=== PATIENT | male | born 1960 | race Caucasian/White ===

== ENCOUNTER 2018-08-23 11:30 | Emergency (ER) | payer BC ==
[2018-08-23 12:03] VITALS: BP 137/74; PULSE 64; TEMP 98.1; BMI 19.8
--- NOTE | 2018-08-23 12:47 | PDOC ---
History of Present Illness - General Chief Complaint: Injury Stated Complaint: hit head last night Time Seen by Provider: 08/23/18 12:44 - History of Present Illness Initial Comments: 08/23/18 13:25 Chief complaint: Contusion of the forehead History of present illness: Patient sent to the ER for evaluation from the [facility]. Scheduled for colonoscopy today, but it was noted that he had a bruise on his forehead from a fall last night, and the colonoscopy was deferred pending further evaluation. The patient states that he was walking to the bathroom last night, tripped over a shelf, fell and struck his forehead. He did not feel lightheaded or dizzy. There was no loss of consciousness. He was immediately and continued his normal activities without undue pain, lightheadedness, dizziness, headache, nausea, or vomiting. He has no complaints at present. He denies headache, visual or focal neurologic symptoms, unsteadiness of gait Review of systems: As above. Otherwise negative Past medical history: Healthy male, no significant medical or surgical problems past her present, no medications including blood thinners or aspirin. Social/family history: Does [employer] work, fully active, without disability. Colonoscopy was done routinely as a screening tool. He has no family history of colon cancer Physical exam: Alert and oriented well-developed well-nourished no acute distress cheerful and cooperative. Denies headache, nausea, drowsiness, or difficulty concentrating Afebrile, vital signs normal HEENT: 2 cm contusion, hematoma, and upper eyelid ecchymosis, left forehead. 1 mm abrasion. Minimal tenderness to palpation. No deformity of the orbit or other facial bones. No other welling or tenderness of the face. ENT clear. PERRLA, conjunctivae clear, EOMs full without diplopia, visual hanks intact confrontation, anterior chambers and corneas clear, fundi benign with sharp disc margins and good central venous pulsations. Neck supple without bruit mass or nodes. No point tenderness or deformity. Full range of motion without pain Chest clear to P&A, full breath sounds bilaterally, no rib cage or chest wall tenderness or deformity CV regular without murmur rub or gallop pulses full and symmetric no JVD or edema. No bruits Abdomen soft nontender without mass or organomegaly. No CVAT. Pelvis and spine without tenderness or deformity Extremities without visible or palpable sign of trauma Neurological C2 to 12 intact. Strength full and symmetric. No focal sensory or motor deficits. Gait stable and unimpaired Impression: Contusion of the forehead, minor head injury, no sign of concussion or intracranial hemorrhage Plan: Symptomatic treatment, observation at home, and follow-up if further symptoms develop. Fully ambulatory and in no pain or other distress upon discharge with his sister to follow-up as directed. Past History - Past Medical History Allergies/Adverse Reactions: Allergies Allergy/AdvReac Type Severity Reaction Status Date / Time No Known Allergies Allergy Verified 08/23/18 11:58 Home Medications: Ambulatory Orders Carbamazepine Xr [Tegretol Xr -] 400 mg PO BID 08/23/18 COPD: No Seizures: Yes (last seizure 1998) - Suicide/Smoking/Psychosocial Hx Smoking History: Never smoked Have you smoked in the past 12 months: No Information on smoking cessation initiated: No Hx Alcohol Use: No Drug/Substance Use Hx: No Substance Use Type: None *Physical Exam - Vital Signs Last Vital Signs Temp Pulse Resp BP Pulse Ox 98.1 F 64 20 137/74 99 08/23/18 11:32 08/23/18 11:32 08/23/18 11:32 08/23/18 11:32 08/23/18 11:32 *DC/Admit/Observation/Transfer Diagnosis at time of Disposition: Contusion of forehead Qualifiers: Encounter type: initial encounter Qualified Code(s): S00.83XA - Contusion of other part of head, initial encounter - Discharge Dispostion Disposition: HOME Condition at time of disposition: Stable Decision to Admit order: No - Referrals Referrals: Jovanni Garcia MD [Staff Physician] - - Patient Instructions Printed Discharge Instructions: DI for Closed Head Injury Additional Instructions: Return to emergency room if further symptoms develop, especially headache, nausea, vomiting, visual symptoms, lightheadedness, dizziness, unsteadiness of gait, excessive drowsiness or decreased alertness. Use ice to the bruises. Make sure you are awakened at your normal time tomorrow morning and they you're feeling well. - Post Discharge Activity Forms/Work/School Notes: Back to Work
== END 2018-08-23 12:56 | disposition home or self-care (01) ==
LOC: MERGE 11:30 → FER 11:30
DX: S00.83XA Contusion of other part of head, initial encounter (principal); W18.39XA Other fall on same level, initial encounter; Y93.89 Activity, other specified; Y92.009 Unspecified place in unspecified non-institutional (private) residence as the place of occurrence of the external cause
CPT/HCPCS: 99282-25

== ENCOUNTER 2019-09-22 19:48 | Emergency (ER) | payer BC ==
[2019-09-22 20:06] VITALS: BP 115/63; PULSE 73; TEMP 98.2; BMI 21.1
--- NOTE | 2019-09-22 21:20 | PDOC ---
History of Present Illness - General Chief Complaint: Edema Stated Complaint: SWELLING Time Seen by Provider: 09/22/19 20:11 History Source: Patient Exam Limitations: No Limitations Past History - Past Medical History Allergies/Adverse Reactions: Allergies Allergy/AdvReac Type Severity Reaction Status Date / Time No Known Allergies Allergy Verified 02/09/19 16:47 Home Medications: Ambulatory Orders Carbamazepine Xr [Tegretol Xr -] 400 mg PO BID 08/23/18 Anemia: No Asthma: No Cancer: No Cardiac Disorders: No CVA: No COPD: No CHF: No Dementia: No Diabetes: No GI Disorders: No Disorders: No HTN: No Hypercholesterolemia: No Liver Disease: No Seizures: Yes (last seizure 1998) Thyroid Disease: No - Surgical History Abdominal Surgery: No Appendectomy: No Cardiac Surgery: No Cholecystectomy: No Lung Surgery: No Neurologic Surgery: No Orthopedic Surgery: No - Immunization History Immunization Up to Date: No - Psycho Social/Smoking Cessation Hx Smoking History: Former smoker Have you smoked in the past 12 months: No Information on smoking cessation initiated: No Hx Alcohol Use: No Drug/Substance Use Hx: No Substance Use Type: None Hx Substance Use Treatment: No *Physical Exam - Vital Signs Last Vital Signs Temp Pulse Resp BP Pulse Ox 98.2 F 73 19 115/63 98 09/22/19 20:03 09/22/19 20:03 09/22/19 20:03 09/22/19 20:03 09/22/19 20:03 - Physical Exam General Appearance: No: Apparent Distress Musculoskeletal: positive: Other (+R thumb large swelling, no TTP along pulp of finger, TTP along dorsal aspect of R thumb, +erythema and slight warmth, distal aspect of thumb is soft to touch, no drainage, no streaking, FROM of R thumb) Neurologic: positive: Alert, Normal Mood/Affect ED Treatment Course - RADIOLOGY Radiology Studies Ordered: Category Date Time Status FINGER(S) RIGHT [RAD] Stat Radiology 09/22/19 20:32 Taken Medical Decision Making - Medical Decision Making 59 y/o M with hx of seizures presents with R thumb swelling x 1 day. Mentions R thumb was infected 4 days ago and went to urgent care 3 days ago, where they squeezed pus out (from underneath the nail) and placed him on Bactrim. However, states from yesterday, the thumb suddenly swelled. Denies fever R thumb infection - appears worse than usual paronychia R thumb xray shows no evidence of gas D/W Dr. Aguilar - recommends hand consult or transfer if unable to reach No one is listed manager long term care for hand tonight D/W [facility] - plastic, Dr. aRi - he accepts patient for transfer 09/22/19 21:16 Discharge - Discharge Information Problems reviewed: Yes Clinical Impression/Diagnosis: Infection of thumb Condition: Stable Disposition: TRANSFER ACUTE CARE/OTHER HOSP - Admission No - Follow up/Referral Referrals: Tip Hebert MD [Primary Care Provider] - - Patient Discharge Instructions - Post Discharge Activity - Transfer to Acute Care Facility Receiving Facility Name: [facility] Accepting Physician:: Dr. Rai
== END 2019-09-22 22:48 | disposition short-term general hospital (02) ==
LOC: JERFT 19:48
DX: L08.89 Other specified local infections of the skin and subcutaneous tissue (principal); G40.909 Epilepsy, unspecified, not intractable, without status epilepticus; Z87.891 Personal history of nicotine dependence
CPT/HCPCS: 73140-TC-RT-FY; 99282-25

== ENCOUNTER 2019-12-03 18:45 | Emergency (ER) | payer BC ==
[2019-12-03 18:49] VITALS: BP 141/75; PULSE 76; TEMP 98; BMI 21.7
== END 2019-12-03 20:49 | disposition left against medical advice (07) ==
LOC: JERFT 18:45
DX: Z53.21 Procedure and treatment not carried out due to patient leaving prior to being seen by health care provider (principal)
CPT/HCPCS: 99281-25

== ENCOUNTER 2019-12-04 05:22 | Emergency (ER) | payer BC ==
[2019-12-04 05:50] VITALS: BMI 22.4
--- NOTE | 2019-12-04 07:44 | PDOC ---
History of Present Illness - General Chief Complaint: Eye Problem Stated Complaint: EYE PROBLEM Time Seen by Provider: 12/04/19 07:12 - History of Present Illness Initial Comments: Mr. Small is a 59 y/o male with PMH significant for seizures (well controlled on dilantin) presenting today with mild right eye discharge and swelling that started yesterday. Reports that this is the first time it has happened. Denies fever/chills. Denies trauma or injury to the eye. Denies photophobia or change in vision. Denies headache. Denies bleeding from the eye. 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 Past History - Past Medical History Allergies/Adverse Reactions: Allergies Allergy/AdvReac Type Severity Reaction Status Date / Time No Known Allergies Allergy Verified 12/04/19 05:47 Home Medications: Ambulatory Orders Carbamazepine Xr [Tegretol Xr -] 400 mg PO BID 08/23/18 Anemia: No Asthma: No Cancer: No Cardiac Disorders: No CVA: No COPD: No CHF: No Dementia: No Diabetes: No GI Disorders: No Disorders: No HTN: No Hypercholesterolemia: No Liver Disease: No Seizures: Yes (last seizure 1998) Thyroid Disease: No - Surgical History Abdominal Surgery: No Appendectomy: No Cardiac Surgery: No Cholecystectomy: No Lung Surgery: No Neurologic Surgery: No Orthopedic Surgery: No - Immunization History Immunization Up to Date: No - Psycho Social/Smoking Cessation Hx Smoking History: Never smoked Have you smoked in the past 12 months: No Hx Alcohol Use: No Drug/Substance Use Hx: No Substance Use Type: None Hx Substance Use Treatment: No Review of Systems - Review of Systems Comments:: GENERAL/CONSTITUTIONAL: No fever or chills. No weakness._ HEAD, EYES, EARS, NOSE AND THROAT: Reports right eye discharge and swelling. No change in vision. No change in hearing. No sore throat._ CARDIOVASCULAR: No chest pain or shortness of breath_ RESPIRATORY: Denies cough, hemoptysis_ GASTROINTESTINAL: No nausea, vomiting, diarrhea or constipation._ GENITOURINARY: No dysuria, frequency, or change in urination._ MUSCULOSKELETAL: No joint or muscle swelling or pain. No neck or back pain._ SKIN: No rash_ NEUROLOGIC: No headache, vertigo, loss of consciousness, or change in strength/ sensation._ ENDOCRINE: No increased thirst. No abnormal weight change_ HEMATOLOGIC/LYMPHATIC: No anemia, easy bleeding, or history of blood clots._ ALLERGIC/IMMUNOLOGIC: No hives or skin allergy._ *Physical Exam - Vital Signs Last Vital Signs Temp Pulse Resp BP Pulse Ox 98.5 F 75 18 138/75 99 12/04/19 05:30 12/04/19 05:30 12/04/19 05:30 12/04/19 05:30 12/04/19 05:30 - Physical Exam GENERAL: Awake, alert, and oriented to person/place/time, in no acute distress_ HEAD: No signs of trauma, normocephalic, atraumatic _ EYES: Visual Acuity: OD 20/40; OS 20/20 Visual Mai:OD intact x 4; OS intact x 4 Extraocular movements: OD intact w/o diplopia; OS intact w/o diplopia Lids/Lashes/Lacrimal: OD stye noted on lower right eye lid with mild TTP; OS no lesions Globe: No TTP right globe, no TTP left globe Conjunctiva & Sclera: OD white and quiet; OS white and quiet Iris: OD round and reactive; OS round and reactive Lens: OD clear; OS clear ENT: Hearing grossly normal, nares patent, oropharynx clear without exudates. No uvular deviation. Moist mucosa_ NECK: Normal ROM, supple, no lymphadenopathy, JVD, or masses_ LUNGS: No distress, speaks in full sentences, clear to auscultation bilaterally _ HEART: Regular rate and rhythm, normal S1 and S2, no murmurs appreciated, peripheral pulses normal and equal bilaterally._ ABDOMEN: Soft, nontender, normoactive bowel sounds. No guarding, no rebound. No masses_ EXTREMITIES: Normal inspection, Normal range of motion, no edema. No clubbing or cyanosis_ NEUROLOGICAL: Cranial nerves II through XII grossly intact. Normal speech, normal gait, no focal sensorimotor deficits _ SKIN: Warm, Dry, normal turgor, no rashes or lesions noted_ Medical Decision Making - Medical Decision Making 12/04/19 08:20 59M presenting with right lower eye lid swelling and discharge for 2 days. Patient has a stye on his right lower eye lid. Plan to d/c home with warm compresses QID, ophtho follow up, return if worse. D/w the patient who verbalized understanding and agreement with plan. All questions answered. Discharge - Discharge Information Problems reviewed: Yes Clinical Impression/Diagnosis: Stye Qualifiers: Laterality: right Eyelid: lower Qualified Code(s): H00.012 - Hordeolum externum right lower eyelid Condition: Stable Disposition: HOME - Admission No - Follow up/Referral Referrals: Tip Hebert MD [Primary Care Provider] - Rasta Yeh MD [Staff Physician] - - Patient Discharge Instructions Additional Instructions: Please apply warm compresses to the right eye four times per day. Please make an appointment with an opthalmologist to follow up with the stye on your right eye (referral provided here). If you experience any new, worsening, or concerning symptoms, including change in vision, eye pain, pain with light, blood or increase in discharge from the eye, or the sweling does not improve, please return to the emergency room. - Post Discharge Activity
--- NOTE | 2019-12-04 08:21 | PDOC ---
Attending Attestation - Resident Resident Name: Shashank Lizama - ED Attending Attestation I have performed the following: I have examined & evaluated the patient, The case was reviewed & discussed with the resident, I agree w/resident's findings & plan, Exceptions are as noted - HPI HPI: 12/04/19 08:12 59 M with h/o epilepsy presenting to ED with R eyelid swelling. Pt states that it started 2 days ago. He first noticed it in the morning when he was shaving. Pt reports swelling to the bottom R eyelid associated with mild pain in the eyelid. Denies any pain in the eye. Notes mild blurry vision but states that this is due to rubbing his eye. Denies pain with EOM. Denies F/C. Denies any redness or swelling around the eye. - Physicial Exam PE: 12/04/19 08:24 GENERAL: Awake, alert, and fully oriented, in no acute distress. HEAD: No signs of trauma EYES: + R lower eyelid hordeolum, PERRLA, EOMI, sclera anicteric, conjunctiva clear ENT: Auricles normal inspection, hearing grossly normal, nares patent, oropharynx clear without exudates. Moist mucosa NECK: Nontender, no stepoffs, Normal ROM, supple, no lymphadenopathy, JVD, or masses LUNGS: Breath sounds equal, clear to auscultation bilaterally. No wheezes, and no crackles HEART: Regular rate and rhythm, normal S1 and S2, no murmurs, rubs or gallops ABDOMEN: Soft, nontender, normoactive bowel sounds. No guarding, no rebound. No masses EXTREMITIES: Normal range of motion, no edema. No clubbing or cyanosis. No cords, erythema, or tenderness NEUROLOGICAL: Cranial nerves II through XII intact. 5/5 strength and sensation in all extremities, Normal speech, normal gait, normal cerebellar function SKIN: Warm, Dry, normal turgor, no rashes or lesions noted. - Medical Decision Making 12/04/19 08:25 59 M with hordeolum of R lower eyelid. No evidence of conjuctivitis. No preseptal or orbital cellulitis. - Warm compresses - Ophtho f/u Pt is well appearing, with normal vitals. Clinically stable for DC at this time. I discussed the physical exam findings, ancillary test results and final diagnoses with the patient. I answered all of the patient's questions. The patient was satisfied with the care received and felt comfortable with the discharge plan and treatment plan. The patient agrees to follow up with the primary care physician within 24-72 hours.
[2019-12-04 09:04] VITALS: BP 118/73; PULSE 68; TEMP 98
== END 2019-12-04 09:05 | disposition home or self-care (01) ==
LOC: JER 05:22
DX: H00.012 Hordeolum externum right lower eyelid (principal); G40.909 Epilepsy, unspecified, not intractable, without status epilepticus
CPT/HCPCS: 99281-25

== ENCOUNTER 2021-02-11 08:48 | Emergency (ER) | payer BC ==
[2021-02-11 09:04] VITALS: BMI 23.0
[2021-02-11] MEDS ORDERED: BAMLANIVIMAB 700 MG, ETESEVIMAB 1,400 MG in SODIUM CHLORIDE 250 ML IVPB ONE (11:29)
[2021-02-11 12:52] LABS: BASO % 0.1 % (0-2.0); HEMATOCRIT 35.9 % (35.4-49); HEMOGLOBIN 12.7 GM/dL (11.7-16.9); LYMPH % 19.6 % (8-40); MCH 33.8 pg (25.7-33.7); MCHC 35.3 g/dl (32.0-35.9); MEAN CELL VOLUME 95.8 fl (80-96); MEAN PLT VOLUME 12.7 fl (7.5-11.1); MONO % 11.3 % (3.8-10.2); PLATELET COUNT 50 K/MM3 (134-434); RBC 3.74 M/mm3 (4.00-5.60); RDW 12.9 % (11.9-15.9); WHITE BLOOD COUNT 3.4 K/mm3 (4.0-10.0)
[2021-02-11 12:56] LABS: EPI CELLS 12 /uL (0-25.1); HYALINE CASTS 1 /uL (0-3.1); URINE APPEARANCE CLEAR; URINE BACTERIA 989 /uL (0-1359); URINE BILIRUBIN NEGATIVE (NEGATIVE); URINE COLOR DK YELLOW; URINE GLUCOSE (UA) NEGATIVE (NEGATIVE); URINE KETONE 3+ (NEGATIVE); URINE LEUK ESTERASE NEGATIVE (NEGATIVE); URINE NITRITE NEGATIVE (NEGATIVE); URINE PROTEIN 2+ (NEGATIVE); URINE RBC 12 /uL (0-23.9); URINE UROBILINOGEN 0.2 mg/dL (0.2-1.0); URINE WBC 8 /uL (0-25.8)
[2021-02-11 13:18] LABS: POTASSIUM 3.8 mmol/L (3.5-5.1)
[2021-02-11 13:19] LABS: CALCIUM 8.1 mg/dL (8.5-10.1)
[2021-02-11 13:21] LABS: ALBUMIN 3.4 g/dl (3.4-5.0); BLOOD UREA NITROGEN 13.3 mg/dL (7-18)
[2021-02-11 13:23] LABS: CREATININE 0.8 mg/dL (0.55-1.3)
[2021-02-11 13:24] LABS: BILIRUBIN,TOTAL 0.5 mg/dL (0.2-1); TOT PROT 6.7 g/dl (6.4-8.2)
[2021-02-11] MEDS ORDERED: SODIUM CHLORIDE 1,000 ML IV STA (13:43)
[2021-02-11 15:11] VITALS: BP 126/65; PULSE 80; TEMP 100.4
== END 2021-02-11 15:55 | disposition home or self-care (01) ==
LOC: JCOVINFU 08:48
PROC: 3E033NZ Introduction of Analgesics, Hypnotics, Sedatives into Peripheral Vein, Percutaneous Approach (ICD-10-PCS; principal; 2021-02-11)
PROC: 3E0337Z Introduction of Electrolytic and Water Balance Substance into Peripheral Vein, Percutaneous Approach (ICD-10-PCS; 2021-02-11)
DX: U07.1 COVID-19 (principal)
CPT/HCPCS: 36415; 80053; 81003; 85025; 99284-25; M0239; Q0239; Q0245

== ENCOUNTER 2022-04-05 06:49 | Emergency (ER) | payer BC ==
[2022-04-05 07:20] VITALS: BMI 22.4
[2022-04-05] MEDS ORDERED: BEBTELOVIMAB (EUA) 175 MG/2 ML VIAL IVPUSH ONE (07:55)
[2022-04-05 10:18] VITALS: BP 109/64; PULSE 68; TEMP 97.6
== END 2022-04-05 10:10 | disposition home or self-care (01) ==
LOC: JER 06:49
DX: U07.1 COVID-19 (principal)
CPT/HCPCS: 99284-25; Q0222

== ENCOUNTER 2022-12-14 14:26 | Emergency (ER) | payer OTHER, BC ==
[2022-12-14 14:48] VITALS: BMI 20.5
[2022-12-14] MEDS ORDERED: ACETAMINOPHEN 325 MG TABLET (FP) PO ONE (18:08)
[2022-12-14] MEDS ORDERED: ACETAMINOPHEN 325 MG TABLET (FP) ONE (18:12)
[2022-12-14 19:31] LABS: BASO % 0.1 % (0-2.0); HEMATOCRIT 34.8 % (35.4-49); HEMOGLOBIN 11.7 GM/dL (11.7-16.9); MCH 32.5 pg (25.7-33.7); MCHC 33.7 g/dl (32.0-35.9); MEAN CELL VOLUME 96.4 fl (80-96); MONO % 7.9 % (3.8-10.2); PLATELET COUNT 145 10^3/uL (134-434); RBC 3.61 M/mm3 (4.00-5.60); RDW 13.1 % (11.9-15.9); WHITE BLOOD COUNT 10.9 K/mm3 (4.0-10.0)
[2022-12-14 19:34] LABS: CALCIUM 8.7 mg/dL (8.5-10.1)
[2022-12-14 19:35] LABS: BLOOD UREA NITROGEN 19.2 mg/dL (7-18)
[2022-12-14 19:38] LABS: CREATININE 0.6 mg/dL (0.55-1.3)
[2022-12-14 19:39] LABS: BILIRUBIN,TOTAL 0.4 mg/dL (0.2-1)
[2022-12-14 19:49] VITALS: TEMP 99.9
[2022-12-14 20:25] LABS: PH,URINE 6.5 (5.0-8.0); URINE APPEARANCE CLOUDY; URINE BILIRUBIN NEGATIVE (NEGATIVE); URINE COLOR YELLOW; URINE GLUCOSE (UA) NEGATIVE (NEGATIVE); URINE KETONE NEGATIVE (NEGATIVE); URINE LEUK ESTERASE NEGATIVE (NEGATIVE); URINE NITRITE NEGATIVE (NEGATIVE); URINE PROTEIN TRACE (NEGATIVE); URINE UROBILINOGEN 0.2 mg/dL (0.2-1.0)
[2022-12-15 01:00] VITALS: BP 123/72; PULSE 84; RESP 16
== END 2022-12-15 01:01 | disposition short-term general hospital (02) ==
LOC: JER 14:26
DX: S72.001A Fracture of unspecified part of neck of right femur, initial encounter for closed fracture (principal); V03.00XA Pedestrian on foot injured in collision with car, pick-up truck or van in nontraffic accident, initial encounter; Z96.641 Presence of right artificial hip joint
CPT/HCPCS: 0241U-QW; 36415; 71101-TC-LT-FY; 73060-TC-LT-FY; 73070-TC-LT-FY; 73090-TC-LT-FY; 73502-TC-RT-FY; 74177-TC; 80053; 81003; 83605; 85025; 87040; 87086; 93005; 93010; 99285-25